=== PATIENT | male | born 1945 | race Caucasian/White ===

== ENCOUNTER 2017-06-25 08:27 | Inpatient (IN) ==
[2017-06-25] MEDS ORDERED: FUROSEMIDE 100 MG/10 ML VIAL IV STA (09:26)
[2017-06-25] MEDS ORDERED: FUROSEMIDE 40 MG/4 ML VIAL ONE (09:32)
[2017-06-25] MEDS ORDERED: FUROSEMIDE 20 MG/2 ML VIAL ONE (09:32)
[2017-06-25 09:57] LABS: Basophils % 0.3 % (0.0-0.8); Eosinophils # 0.1 10*3/uL (0.0-0.87); Eosinophils % 0.5 % (0.00-10.9); Hematocrit 39.6 VOL% (42.0-52.0); Hemoglobin 12.7 GM/DL (14.0-18.0); Immature Granulocytes % 0.5 %; Immature Granulocytes Absolute 0.06 #; Lymphocytes # 1.7 10*3/uL (1.4-4.0); Lymphocytes % 12.5 % (21.2-54.2); Mean Corpuscular HGB Conc 32.1 GM/DL (32-36); Mean Corpuscular Hemoglobin 31 PG (27-34); Mean Corpuscular Volume 95.2 FL (87-102); Mean Platelet Volume 13.5 FL (9.6-12.0); Monocytes # 1.1 10*3/uL (0.11-0.8); Neutrophils # 10.3 10*3/uL (1.4-7.4); Neutrophils % 78.2 % (38.7-73.9); Platelet Count 134 T/CUMM (130-400); Red Blood Count 4.16 MC/CUMM (3.8-5.5); Red Cell Distribution Width 15.1 % (9.3-17.3); White Blood Count 13.2 T/CUMM (4-12)
[2017-06-25 10:29] LABS: Albumin 2.8 G/DL (3.4-5.0); Bilirubin,Total 2.2 MG/DL (0.2-1.0); Calcium 8.5 MG/DL (8.5-10.1); Osmolality,Calculated 279.8 MOS/KG (273-304); Potassium 4.2 MMOL/L (3.5-5.1); Total Protein 6.4 G/DL (6.4-8.3)
[2017-06-25] MEDS ORDERED: ONDANSETRON 4 MG/2 ML VIAL IV PRN (12:03)
[2017-06-25] MEDS ORDERED: ACETAMINOPHEN 325 MG TABLET PO PRN (12:03)
[2017-06-25] MEDS ORDERED: metOLazone 5 MG TABLET PO SCH (15:30)
[2017-06-25] MEDS: cefTRIAXone 1,000 MG in SYRINGE 1 EACH IV SCH (16:20)
[2017-06-25] MEDS: FUROSEMIDE 100 MG/10 ML VIAL IV SCH (16:21)
[2017-06-25] MEDS: METOPROLOL SUCCINATE XL 25 MG TABLET PO SCH (16:22)
[2017-06-25] MEDS: AMIODARONE 200 MG TABLET PO SCH ×2 (16:23→21:34)
[2017-06-25] MEDS: ASPIRIN CHEW 81 MG TABLET PO SCH (16:23)
[2017-06-25] MEDS: amLODIPine 5 MG TABLET PO SCH (16:23)
[2017-06-25] MEDS: POTASSIUM CHLORIDE 20 MEQ TABLET PO SCH (16:23)
[2017-06-25 16:58] LABS: Apearance,Urine CLEAR (Clear); Bilirubin,Urine Negative (Negative); Blood, Urine Small mg/dL (Negative); Glucose,Urine (UA) Negative (Negative); Hyaline Casts,Urine 10 /LPF (0-3); Ketones,Urine Negative (Negative); Mucus,Urine Occasional /LPF (Occasional); Nitrite,Urine Negative (Negative); Protein,Urine Negative; Urine Color Yellow (Yellow); Urine Specific Gravity 1.006 (1.001-1.035); Urine Urobilinogen < 2.0 EU/DL (0.2-1.0); WBC,Urine 1 /HPF (0-6)
[2017-06-25 18:14] LABS: Barbiturates Screen,Urine Negative (Negative); Benzodiazepines Screen,Urine Negative (Negative); Cannabinoid Screen,Urine Negative (Negative); Opiate Screen,Urine Negative (Negative); Phencyclidine Screen,Urine Negative (Negative)
[2017-06-25] MEDS: ENOXAPARIN 30 MG/0.3 ML SYRINGE SUBCUT SCH (21:34)
[2017-06-25] MEDS: ATORVASTATIN 20 MG TABLET PO SCH (21:34)
[2017-06-26 05:03] LABS: Basophils % 0.4 % (0.0-0.8); Eosinophils # 0.1 10*3/uL (0.0-0.87); Eosinophils % 0.7 % (0.00-10.9); Hematocrit 34.3 VOL% (42.0-52.0); Hemoglobin 11.3 GM/DL (14.0-18.0); Immature Granulocytes % 0.6 %; Immature Granulocytes Absolute 0.06 #; Lymphocytes # 1.4 10*3/uL (1.4-4.0); Lymphocytes % 12.9 % (21.2-54.2); Mean Corpuscular HGB Conc 32.9 GM/DL (32-36); Mean Corpuscular Hemoglobin 31 PG (27-34); Mean Corpuscular Volume 93.2 FL (87-102); Mean Platelet Volume 13.7 FL (9.6-12.0); Monocytes # 0.8 10*3/uL (0.11-0.8); Monocytes % 7.7 % (1.7-12.7); Neutrophils # 8.5 10*3/uL (1.4-7.4); Neutrophils % 77.7 % (38.7-73.9); Platelet Count 127 T/CUMM (130-400); Red Blood Count 3.68 MC/CUMM (3.8-5.5); Red Cell Distribution Width 15.2 % (9.3-17.3); White Blood Count 10.9 T/CUMM (4-12)
[2017-06-26 05:41] LABS: Albumin 2.6 G/DL (3.4-5.0); Bilirubin,Total 2.3 MG/DL (0.2-1.0); Osmolality,Calculated 281.7 MOS/KG (273-304); Potassium 4.1 MMOL/L (3.5-5.1); Risk Ratio 4.9; Thyroid Stimulating Hormone 1.93 uIU/ml (0.358-3.74); Total Protein 6.1 G/DL (6.4-8.3); VLDL CHOLESTEROL 17.6 MG/DL
[2017-06-26] MEDS: ASPIRIN CHEW 81 MG TABLET PO SCH (08:45)
[2017-06-26] MEDS: amLODIPine 5 MG TABLET PO SCH (08:45)
[2017-06-26] MEDS: POTASSIUM CHLORIDE 20 MEQ TABLET PO SCH (08:45)
[2017-06-26] MEDS: AMIODARONE 200 MG TABLET PO SCH ×2 (08:45→21:24)
[2017-06-26] MEDS: PANTOPRAZOLE 40 MG TABLET PO SCH (08:45)
[2017-06-26] MEDS: METOPROLOL SUCCINATE XL 25 MG TABLET PO SCH (08:45)
[2017-06-26] MEDS ORDERED: FUROSEMIDE 100 MG/10 ML VIAL IV SCH (08:51)
[2017-06-26] MEDS ORDERED: FUROSEMIDE 40 MG/4 ML VIAL IV SCH (09:00)
[2017-06-26] MEDS: FUROSEMIDE 100 MG/10 ML VIAL IV SCH ×3 (09:06→17:15)
[2017-06-26] MEDS: metOLazone 5 MG TABLET PO SCH (09:20)
[2017-06-26 10:39] LABS: Hepatitis A Ab IgM Quant 0.09 Index; Hepatitis A Ab IgM Result Negative (Negative); Hepatitis B Core IgM Quant 0.17 Index; Hepatitis B Core IgM Result Negative (Negative); Hepatitis B Surface Ag Quant 0.15 Index; Hepatitis B Surface Ag Result Negative (Negative); Hepatitis C Virus Ab Quant 0.09 Index; Hepatitis C Virus Ab Result Negative (Negative)
[2017-06-26] MEDS: cefTRIAXone 1,000 MG in SYRINGE 1 EACH IV SCH (15:20)
[2017-06-26] MEDS: ENOXAPARIN 30 MG/0.3 ML SYRINGE SUBCUT SCH (21:24)
[2017-06-26] MEDS: ATORVASTATIN 20 MG TABLET PO SCH (21:24)
[2017-06-27 03:47] LABS: Basophils # 0.1 10*3/uL (0.0-0.2); Basophils % 0.5 % (0.0-0.8); Eosinophils # 0.1 10*3/uL (0.0-0.87); Eosinophils % 1.1 % (0.00-10.9); Hematocrit 36.1 VOL% (42.0-52.0); Immature Granulocytes % 0.3 %; Immature Granulocytes Absolute 0.03 #; Lymphocytes # 1.5 10*3/uL (1.4-4.0); Lymphocytes % 14.1 % (21.2-54.2); Mean Corpuscular HGB Conc 33.2 GM/DL (32-36); Mean Corpuscular Hemoglobin 31 PG (27-34); Mean Corpuscular Volume 92.6 FL (87-102); Monocytes # 0.8 10*3/uL (0.11-0.8); Monocytes % 7.6 % (1.7-12.7); Neutrophils # 8.2 10*3/uL (1.4-7.4); Neutrophils % 76.4 % (38.7-73.9); Platelet Count 132 T/CUMM (130-400); Red Cell Distribution Width 15.3 % (9.3-17.3); White Blood Count 10.8 T/CUMM (4-12)
[2017-06-27 04:08] LABS: Albumin 2.6 G/DL (3.4-5.0); Bilirubin,Total 1.9 MG/DL (0.2-1.0); Calcium 8.2 MG/DL (8.5-10.1); Osmolality,Calculated 279.7 MOS/KG (273-304); Potassium 3.6 MMOL/L (3.5-5.1); Total Protein 6.3 G/DL (6.4-8.3)
[2017-06-27] MEDS: metOLazone 5 MG TABLET PO SCH (09:05)
[2017-06-27] MEDS: ASPIRIN CHEW 81 MG TABLET PO SCH (09:06)
[2017-06-27] MEDS: amLODIPine 5 MG TABLET PO SCH (09:06)
[2017-06-27] MEDS: METOPROLOL SUCCINATE XL 25 MG TABLET PO SCH ×3 (09:06→21:01)
[2017-06-27] MEDS: POTASSIUM CHLORIDE 20 MEQ TABLET PO SCH (09:06)
[2017-06-27] MEDS: AMIODARONE 200 MG TABLET PO SCH (09:06)
[2017-06-27] MEDS: FUROSEMIDE 100 MG/10 ML VIAL IV SCH ×2 (09:06→15:03)
[2017-06-27] MEDS: PANTOPRAZOLE 40 MG TABLET PO SCH (09:06)
[2017-06-27] MEDS: cefTRIAXone 1,000 MG in SYRINGE 1 EACH IV SCH (14:59)
[2017-06-27] MEDS: ENOXAPARIN 30 MG/0.3 ML SYRINGE SUBCUT SCH (21:00)
[2017-06-27] MEDS: MELATONIN 3 MG TABLET PO SCH (21:00)
[2017-06-27] MEDS: ATORVASTATIN 20 MG TABLET PO SCH (21:01)
[2017-06-27] MEDS: SERTRALINE 100 MG TABLET PO SCH (21:01)
[2017-06-27] MEDS: ZALEPLON 5 MG CAPSULE PO PRN ×2 (21:04→23:20)
[2017-06-28 04:41] LABS: Basophils # 0.1 10*3/uL (0.0-0.2); Basophils % 0.9 % (0.0-0.8); Eosinophils # 0.2 10*3/uL (0.0-0.87); Eosinophils % 1.9 % (0.00-10.9); Hematocrit 39.2 VOL% (42.0-52.0); Hemoglobin 12.7 GM/DL (14.0-18.0); Immature Granulocytes % 0.5 %; Immature Granulocytes Absolute 0.05 #; Lymphocytes # 1.7 10*3/uL (1.4-4.0); Lymphocytes % 16.9 % (21.2-54.2); Mean Corpuscular HGB Conc 32.4 GM/DL (32-36); Mean Corpuscular Hemoglobin 30 PG (27-34); Mean Corpuscular Volume 93.6 FL (87-102); Mean Platelet Volume 13.5 FL (9.6-12.0); Monocytes # 0.8 10*3/uL (0.11-0.8); Monocytes % 7.8 % (1.7-12.7); Neutrophils # 7.3 10*3/uL (1.4-7.4); Platelet Count 152 T/CUMM (130-400); Red Blood Count 4.19 MC/CUMM (3.8-5.5); Red Cell Distribution Width 14.8 % (9.3-17.3); White Blood Count 10.1 T/CUMM (4-12)
[2017-06-28 04:57] LABS: Albumin 2.7 G/DL (3.4-5.0); Bilirubin,Total 1.7 MG/DL (0.2-1.0); Calcium 8.9 MG/DL (8.5-10.1); Osmolality,Calculated 276.9 MOS/KG (273-304); Potassium 3.5 MMOL/L (3.5-5.1); Total Protein 6.5 G/DL (6.4-8.3)
[2017-06-28] MEDS: metOLazone 5 MG TABLET PO SCH (08:54)
[2017-06-28] MEDS: POTASSIUM CHLORIDE 20 MEQ TABLET PO SCH (08:55)
[2017-06-28] MEDS: ASPIRIN CHEW 81 MG TABLET PO SCH (08:55)
[2017-06-28] MEDS: AMIODARONE 200 MG TABLET PO SCH (08:55)
[2017-06-28] MEDS: PANTOPRAZOLE 40 MG TABLET PO SCH (08:55)
[2017-06-28] MEDS: FUROSEMIDE 100 MG/10 ML VIAL IV SCH ×2 (08:55→15:46)
[2017-06-28] MEDS: METOPROLOL SUCCINATE XL 25 MG TABLET PO SCH ×2 (15:46→21:07)
[2017-06-28] MEDS: amLODIPine 5 MG TABLET PO SCH (15:46)
[2017-06-28] MEDS: SERTRALINE 100 MG TABLET PO SCH (21:06)
[2017-06-28] MEDS: ATORVASTATIN 20 MG TABLET PO SCH (21:07)
[2017-06-28] MEDS: ENOXAPARIN 30 MG/0.3 ML SYRINGE SUBCUT SCH (21:07)
[2017-06-28] MEDS: MELATONIN 3 MG TABLET PO SCH (21:07)
[2017-06-29] MEDS: METOPROLOL SUCCINATE XL 25 MG TABLET PO SCH ×2 (09:13→21:42)
[2017-06-29] MEDS: POTASSIUM CHLORIDE 20 MEQ TABLET PO SCH (09:14)
[2017-06-29] MEDS: ASPIRIN CHEW 81 MG TABLET PO SCH (09:14)
[2017-06-29] MEDS: metOLazone 5 MG TABLET PO SCH (09:14)
[2017-06-29] MEDS: FUROSEMIDE 100 MG/10 ML VIAL IV SCH (09:14)
[2017-06-29] MEDS: PANTOPRAZOLE 40 MG TABLET PO SCH (09:14)
[2017-06-29] MEDS: amLODIPine 5 MG TABLET PO SCH (09:14)
[2017-06-29] MEDS: AMIODARONE 200 MG TABLET PO SCH (09:14)
[2017-06-29] MEDS ORDERED: SKIN HEALING OINT (AQUAPHOR) 50 GM TUBE TOP PRN (11:56)
[2017-06-29 13:44] LABS: Calcium 9.3 MG/DL (8.5-10.1); Osmolality,Calculated 272.4 MOS/KG (273-304); Potassium 3.4 MMOL/L (3.5-5.1)
[2017-06-29] MEDS: BACITRACIN OINT 0.9 GM PACK TOP SCH (14:25)
[2017-06-29] MEDS ORDERED: ZOLPIDEM 5 MG TABLET PO PRN (16:09)
[2017-06-29] MEDS: MELATONIN 3 MG TABLET PO SCH (21:42)
[2017-06-29] MEDS: SERTRALINE 100 MG TABLET PO SCH (21:43)
[2017-06-29] MEDS: ATORVASTATIN 20 MG TABLET PO SCH (21:43)
[2017-06-29] MEDS: ENOXAPARIN 30 MG/0.3 ML SYRINGE SUBCUT SCH (21:43)
[2017-06-30 06:33] LABS: Basophils # 0.2 10*3/uL (0.0-0.2); Basophils % 1.7 % (0.0-0.8); Eosinophils # 0.4 10*3/uL (0.0-0.87); Eosinophils % 4.4 % (0.00-10.9); Hematocrit 43.1 VOL% (42.0-52.0); Hemoglobin 14.6 GM/DL (14.0-18.0); Immature Granulocytes % 0.3 %; Immature Granulocytes Absolute 0.03 #; Lymphocytes # 1.4 10*3/uL (1.4-4.0); Lymphocytes % 15.7 % (21.2-54.2); Mean Corpuscular HGB Conc 33.9 GM/DL (32-36); Mean Corpuscular Hemoglobin 31 PG (27-34); Mean Platelet Volume 13.1 FL (9.6-12.0); Monocytes # 0.9 10*3/uL (0.11-0.8); Neutrophils % 67.9 % (38.7-73.9); Platelet Count 159 T/CUMM (130-400); Red Blood Count 4.79 MC/CUMM (3.8-5.5); Red Cell Distribution Width 14.5 % (9.3-17.3); White Blood Count 8.9 T/CUMM (4-12)
[2017-06-30 07:06] LABS: Calcium 8.9 MG/DL (8.5-10.1); Osmolality,Calculated 272.4 MOS/KG (273-304)
[2017-06-30 07:11] LABS: Bilirubin,Total 1.9 MG/DL (0.2-1.0); Calcium 8.9 MG/DL (8.5-10.1); Osmolality,Calculated 274.2 MOS/KG (273-304); Potassium 2.9 MMOL/L (3.5-5.1); Total Protein 7.3 G/DL (6.4-8.3)
[2017-06-30] MEDS: ASPIRIN CHEW 81 MG TABLET PO SCH (10:00)
[2017-06-30] MEDS: POTASSIUM CHLORIDE 20 MEQ TABLET PO SCH (10:00)
[2017-06-30] MEDS: PANTOPRAZOLE 40 MG TABLET PO SCH (10:00)
[2017-06-30] MEDS: amLODIPine 5 MG TABLET PO SCH (10:00)
[2017-06-30] MEDS: AMIODARONE 200 MG TABLET PO SCH (10:00)
[2017-06-30] MEDS: METOPROLOL SUCCINATE XL 25 MG TABLET PO SCH ×2 (10:00→20:46)
[2017-06-30] MEDS: BACITRACIN OINT 0.9 GM PACK TOP SCH (10:05)
[2017-06-30] MEDS ORDERED: POTASSIUM CHLORIDE 20 MEQ TABLET PO ONE ×2 (11:17→13:38)
[2017-06-30 12:52] LABS: Calcium 8.8 MG/DL (8.5-10.1); Osmolality,Calculated 272.2 MOS/KG (273-304); Potassium 2.8 MMOL/L (3.5-5.1)
[2017-06-30] MEDS: SODIUM CHLORIDE 1 GM TABLET PO SCH ×2 (12:57→20:46)
[2017-06-30] MEDS: ENOXAPARIN 30 MG/0.3 ML SYRINGE SUBCUT SCH (20:45)
[2017-06-30] MEDS: SERTRALINE 100 MG TABLET PO SCH (20:46)
[2017-06-30] MEDS: MELATONIN 3 MG TABLET PO SCH (20:46)
[2017-06-30] MEDS: ATORVASTATIN 20 MG TABLET PO SCH (20:46)
[2017-06-30] MEDS: ZALEPLON 5 MG CAPSULE PO PRN (22:03)
[2017-07-01 06:28] LABS: Basophils # 0.2 10*3/uL (0.0-0.2); Basophils % 2.4 % (0.0-0.8); Eosinophils # 0.5 10*3/uL (0.0-0.87); Eosinophils % 5.9 % (0.00-10.9); Hematocrit 43.5 VOL% (42.0-52.0); Hemoglobin 14.3 GM/DL (14.0-18.0); Immature Granulocytes % 0.4 %; Immature Granulocytes Absolute 0.03 #; Lymphocytes # 1.5 10*3/uL (1.4-4.0); Lymphocytes % 19.7 % (21.2-54.2); Mean Corpuscular HGB Conc 32.9 GM/DL (32-36); Mean Corpuscular Hemoglobin 31 PG (27-34); Mean Corpuscular Volume 93.1 FL (87-102); Monocytes # 0.9 10*3/uL (0.11-0.8); Monocytes % 11.5 % (1.7-12.7); Neutrophils # 4.6 10*3/uL (1.4-7.4); Neutrophils % 60.1 % (38.7-73.9); Platelet Count 169 T/CUMM (130-400); Red Blood Count 4.67 MC/CUMM (3.8-5.5); Red Cell Distribution Width 14.7 % (9.3-17.3); White Blood Count 7.6 T/CUMM (4-12)
[2017-07-01 06:50] LABS: Albumin 2.9 G/DL (3.4-5.0); Calcium 8.8 MG/DL (8.5-10.1); Osmolality,Calculated 276.7 MOS/KG (273-304); Potassium 3.2 MMOL/L (3.5-5.1)
[2017-07-01] MEDS ORDERED: FUROSEMIDE 80 MG TABLET PO SCH (09:00)
[2017-07-01] MEDS ORDERED: POTASSIUM CHLORIDE 20 MEQ TABLET PO SCH (09:00)
[2017-07-01] MEDS: SODIUM CHLORIDE 1 GM TABLET PO SCH (09:18)
[2017-07-01] MEDS: METOPROLOL SUCCINATE XL 25 MG TABLET PO SCH (09:18)
[2017-07-01] MEDS: PANTOPRAZOLE 40 MG TABLET PO SCH (09:19)
[2017-07-01] MEDS: ASPIRIN CHEW 81 MG TABLET PO SCH (09:19)
[2017-07-01] MEDS: AMIODARONE 200 MG TABLET PO SCH (09:19)
[2017-07-01] MEDS: amLODIPine 5 MG TABLET PO SCH (09:19)
[2017-07-01 12:14] VITALS: BP 99/63
[2017-07-04] MEDS ORDERED: ERGOCALCIFEROL 50,000 UNIT CAPSULE PO SCH (09:00)
== END 2017-07-01 12:25 | disposition home health service (06) | DRG 291 ==
LOC: N.ED 08:27 → SUATTDRO 11:04 → N.EDINP 11:04 → N.CC 11:49 → N.TELEN 06-27 13:39
PROVIDERS: ADMIT Internal Medicine; ATTEND Internal Medicine

== ENCOUNTER 2017-08-19 05:30 | Inpatient (IN) ==
[2017-08-18 12:54] LABS: Basophils # 0.1 10*3/uL (0.0-0.2); Basophils % 0.9 % (0.0-0.8); Eosinophils # 0.9 10*3/uL (0.0-0.87); Eosinophils % 8.8 % (0.00-10.9); Hematocrit 47.1 VOL% (42.0-52.0); Hemoglobin 15.3 GM/DL (14.0-18.0); Immature Granulocytes % 0.3 %; Immature Granulocytes Absolute 0.03 #; Lymphocytes # 2.1 10*3/uL (1.4-4.0); Lymphocytes % 19.7 % (21.2-54.2); Mean Corpuscular HGB Conc 32.5 GM/DL (32-36); Mean Corpuscular Hemoglobin 30 PG (27-34); Mean Corpuscular Volume 92.9 FL (87-102); Monocytes # 0.7 10*3/uL (0.11-0.8); Monocytes % 6.3 % (1.7-12.7); Neutrophils # 6.7 10*3/uL (1.4-7.4); Platelet Count 167 T/CUMM (130-400); Red Blood Count 5.07 MC/CUMM (3.8-5.5); Red Cell Distribution Width 15.7 % (9.3-17.3); White Blood Count 10.4 T/CUMM (4-12)
[2017-08-18 13:02] LABS: PT Patient Result 10.3 SECS; Partial Thromboplastin Time 27.5 SECS (0-40)
[2017-08-18 13:27] LABS: Calcium 8.9 MG/DL (8.5-10.1); Osmolality,Calculated 278.8 MOS/KG (273-304); Potassium 4.1 MMOL/L (3.5-5.1)
[2017-08-18 13:43] LABS: Apearance,Urine CLEAR (Clear); Bilirubin,Urine Negative (Negative); Blood, Urine Negative (Negative); Glucose,Urine (UA) Negative (Negative); Hyaline Casts,Urine 4 /LPF (0-3); Ketones,Urine Negative (Negative); Nitrite,Urine Negative (Negative); Protein,Urine Negative; Squamous Epithelial Cell,Urine Occasional /HPF (0-10); Urine Color Straw (Yellow); Urine Specific Gravity 1.006 (1.001-1.035); Urine Urobilinogen < 2.0 EU/DL (0.2-1.0)
[~2017-08-19 05:30] MED LIST: HEPARIN/NACL 0.9% 2 UNITS/ML 500 ML IV ONE; MIDAZOLAM 10 MG/2 ML VIAL ONE; SODIUM CHLORIDE 0.9% 1,000 ML IV PRN; SUFentanil 250 MCG/5 ML AMP ONE; TRANEXAMIC ACID 1,000 MG/10 ML VIAL ONE
[2017-08-19] MEDS ORDERED: TISSUE ADHESIVE 1 EACH APPLICATOR TOP ONE (05:35)
[2017-08-19] MEDS ORDERED: VANCOMYCIN 1,000 MG VIAL ONE (05:35)
[2017-08-19] MEDS ORDERED: PAPAVERINE 60 MG/2 ML VIAL ONE (05:35)
[2017-08-19] MEDS ORDERED: CEFUROXIME 1,500 MG VIAL ONE (06:06)
[2017-08-19] MEDS ORDERED: LIDOCAINE 1% 50 ML VIAL ONE (06:08)
[2017-08-19] MEDS ORDERED: DIAZEPAM 5 MG TABLET ONE (06:10)
[2017-08-19] MEDS ORDERED: FAMOTIDINE 20 MG TABLET ONE (06:11)
[2017-08-19] MEDS ORDERED: FAMOTIDINE 20 MG TABLET PO ONE (06:14)
[2017-08-19] MEDS: LACTATED RINGERS 1,000 ML IV SCH (06:20)
[2017-08-19] MEDS ORDERED: DIAZEPAM 5 MG TABLET PO ONE (06:30)
[2017-08-19] MEDS ORDERED: CEFUROXIME INJ 1,500 MG in SYRINGE 1 EACH IV ONE (06:30)
[2017-08-19 07:56] LABS: ABG Base Excess -2.3 MMOL/L (-2.5-2.5); ABG HCO3 22.5 MMOL/L (20-26); ABG Oxygen Saturation 99.6 % (95-100); ABG PCO2 37.2 MM HG (35-48); ABG PH 7.385 (7.35-7.45); ABG TCO2 19.4 MMOL/L (23-27); Glucose Heart Surgery 117 MG/DL (74-106); Hemoglobin Heart Surgery 13.4 G/DL (14.0-18.0); Ionized Calcium Arterial 1.17 MMOL/L (1.21-1.46); PCO2 Patient Temp Arterial 37.2 MMHG; PH Patient Temp Arterial 7.385; Patient Temperature 37 CELCIUS; Potassium Heart/CVR 4.2 MMOL/L (3.5-5.1); Sodium Heart/CVR 138 MMOL/L (135-145)
[2017-08-19 08:45] LABS: Apearance,Urine CLEAR (Clear); Bacteria,Urine Occasional /HPF (Few); Bilirubin,Urine Negative (Negative); Blood, Urine Small mg/dL (Negative); Glucose,Urine (UA) Negative (Negative); Hyaline Casts,Urine 6 /LPF (0-3); Ketones,Urine Negative (Negative); Mucus,Urine Occasional /LPF (Occasional); Nitrite,Urine Negative (Negative); Protein,Urine Negative; RBC,Urine 4 /HPF (0-4); Sperm,Urine Occasional /HPF (Negative); Squamous Epithelial Cell,Urine Occasional /HPF (0-10); Urine Color Yellow (Yellow); Urine Specific Gravity 1.014 (1.001-1.035); Urine Urobilinogen < 2.0 EU/DL (0.2-1.0); WBC,Urine 1 /HPF (0-6)
[2017-08-19 09:33] LABS: Hematocrit Heart Surgery 29.5 PERCENT (42-52); Hemoglobin Heart Surgery 9.5 G/DL (14.0-18.0); PCO2 Patient Temp Venous 36.5 MM HG; PH Patient Temp Venous 7.416; PO2 Patient Temp Venous 38.6 MM HG; Potassium Heart/CVR 5.2 MMOL/L (3.5-5.1); VBG Base Excess -0.8 MEQ/L (0-4); VBG HCO3 23.5 MEQ/L (24-28); VBG Oxygen Saturation 78.5 %; VBG PCO2 40.2 MMHG (41-51); VBG PH 7.387; VBG PO2 44.3 MMHG (17-40)
[2017-08-19 10:05] LABS: Hemoglobin Heart Surgery 10.3 G/DL (14.0-18.0); PCO2 Patient Temp Venous 38.4 MM HG; PH Patient Temp Venous 7.42; PO2 Patient Temp Venous 47.2 MM HG; Potassium Heart/CVR 4.6 MMOL/L (3.5-5.1); VBG HCO3 24.3 MEQ/L (24-28); VBG Oxygen Saturation 79.3 %; VBG PCO2 38.4 MMHG (41-51); VBG PH 7.42; VBG PO2 47.2 MMHG (17-40)
[2017-08-19] MEDS ORDERED: THROMBIN TOPICAL (RECOMBINANT) 5,000 UNIT VIAL TOP ONE (10:24)
[2017-08-19] MEDS ORDERED: ALBUMIN 5% 12.5 GM/250 ML VIAL IV ONE ×2 (11:02→12:09)
[2017-08-19] MEDS ORDERED: CALCIUM CHLORIDE 1,000 MG/10 ML SYRINGE IV ONE (11:02)
[2017-08-19 11:03] LABS: ABG Base Excess -1.7 MMOL/L (-2.5-2.5); ABG HCO3 23.7 MMOL/L (20-26); ABG Oxygen Saturation 99.2 % (95-100); ABG PCO2 42.8 MM HG (35-48); ABG PH 7.361 (7.35-7.45); ABG PO2 371.5 MM HG (80-95); Glucose Heart Surgery 163 MG/DL (74-106); Hemoglobin Heart Surgery 11.6 G/DL (14.0-18.0); Ionized Calcium Arterial 1.17 MMOL/L (1.21-1.46); PCO2 Patient Temp Arterial 42.8 MMHG; PH Patient Temp Arterial 7.361; PO2 Patient Temp Arterial 371.5 MM HG; Patient Temperature 37 CELCIUS; Potassium Heart/CVR 3.8 MMOL/L (3.5-5.1); Sodium Heart/CVR 133 MMOL/L (135-145)
[2017-08-19] MEDS ORDERED: ALBUMIN 25% 25 GM/100 ML VIAL IV ONE (11:06)
[2017-08-19] MEDS ORDERED: DEXTROSE 5% KCL 20 MEQ 20 MEQ/1,000 ML BAG IV ONE (11:06)
[2017-08-19] MEDS ORDERED: MAGNESIUM SULFATE 1 GM/2 ML VIAL ONE (11:06)
[2017-08-19] MEDS ORDERED: PROTAMINE SULFATE 250 MG/25 ML VIAL IV ONE ×2 (11:06→12:05)
[2017-08-19] MEDS ORDERED: HEPARIN 10,000 UNIT/10 ML VIAL ONE (11:06)
[2017-08-19] MEDS ORDERED: methylPREDNISolone SOD SUC 1,000 MG/8 ML VIAL ONE (11:06)
[2017-08-19] MEDS ORDERED: SODIUM BICARBONATE 50 MEQ/50 ML SYRINGE IV ONE ×2 (11:06→19:44)
[2017-08-19] MEDS ORDERED: FUROSEMIDE 20 MG/2 ML VIAL ONE (11:07)
[2017-08-19] MEDS ORDERED: MANNITOL 12.5 GM/50 ML VIAL IV ONE (11:07)
[2017-08-19] MEDS ORDERED: CALCIUM CHLORIDE 1,000 MG/10 ML SYRINGE IV PRN (11:52)
[2017-08-19] MEDS ORDERED: ACETAMINOPHEN 650 MG SUPP RECTAL PRN (11:52)
[2017-08-19] MEDS ORDERED: DEXTROSE 50% 25 GM/50 ML VIAL IV PRN ×2 (11:52)
[2017-08-19] MEDS ORDERED: ONDANSETRON 4 MG/2 ML VIAL IV PRN (11:52)
[2017-08-19] MEDS ORDERED: MAGNESIUM SULF RIDER 4 GM in PREMIX 1 EACH IV PRN (11:52)
[2017-08-19] MEDS ORDERED: MIDAZOLAM 2 MG/2 ML VIAL IV PRN (11:52)
[2017-08-19] MEDS ORDERED: CHLORHEXIDINE 4% SOLN 118 ML BOTTLE TOP PRN (11:52)
[2017-08-19] MEDS ORDERED: POTASSIUM CHLORIDE RIDER 10 MEQ in PREMIX 1 EACH IV PRN (11:52)
[2017-08-19] MEDS ORDERED: PHENYLEPHRINE DRIP 40 MG/250 ML PREMIX IV ONE (11:57)
[2017-08-19] MEDS ORDERED: SODIUM CHLORIDE 0.45% 1,000 ML IV SCH (12:00)
[2017-08-19] MEDS: SODIUM CHLORIDE 0.9% 250 ML IV PRN ×4 (12:00→16:30)
[2017-08-19] MEDS: ALBUMIN 5% 12.5 GM in PREMIX 1 EACH IV PRN ×4 (12:00→18:53)
[2017-08-19] MEDS ORDERED: SEVOFLURANE 1 UNIT/15 MINUTE INH ONE (12:04)
[2017-08-19] MEDS ORDERED: ETOMIDATE 40 MG/20 ML VIAL IV ONE (12:04)
[2017-08-19] MEDS ORDERED: VECURONIUM 10 MG VIAL IV ONE (12:04)
[2017-08-19] MEDS ORDERED: CALCIUM CHLORIDE 1,000 MG/10 ML VIAL IV ONE (12:05)
[2017-08-19] MEDS ORDERED: SODIUM CHLORIDE 0.9% 1,000 ML IV ONE (12:06)
[2017-08-19] MEDS ORDERED: ePHEDrine 50 MG/ML AMP ONE (12:06)
[2017-08-19] MEDS ORDERED: LACTATED RINGERS 1,000 ML IV ONE (12:06)
[2017-08-19] MEDS ORDERED: PHENYLEPHRINE 10 MG/1 ML VIAL IV ONE (12:06)
[2017-08-19 12:26] LABS: ABG Base Excess -3.6 MMOL/L (-2.5-2.5); ABG HCO3 21.4 MMOL/L (20-26); ABG Oxygen Saturation 98.9 % (95-100); ABG PCO2 45.7 MM HG (35-48); ABG PH 7.304 (7.35-7.45); ABG TCO2 21.1 MMOL/L (23-27); Glucose Heart Surgery 129 MG/DL (74-106); Hematocrit Heart Surgery 28.4 PERCENT (42-52); Hemoglobin Heart Surgery 9.2 G/DL (14.0-18.0); Potassium Heart/CVR 4.2 MMOL/L (3.5-5.1)
[2017-08-19 12:27] LABS: Basophils # 0.1 10*3/uL (0.0-0.2); Basophils % 0.5 % (0.0-0.8); Eosinophils # 0.2 10*3/uL (0.0-0.87); Eosinophils % 1.6 % (0.00-10.9); Hemoglobin 9.1 GM/DL (14.0-18.0); Immature Granulocytes % 0.8 %; Immature Granulocytes Absolute 0.12 #; Lymphocytes # 1.3 10*3/uL (1.4-4.0); Lymphocytes % 8.9 % (21.2-54.2); Mean Corpuscular HGB Conc 32.5 GM/DL (32-36); Mean Corpuscular Hemoglobin 31 PG (27-34); Mean Corpuscular Volume 94.3 FL (87-102); Mean Platelet Volume 12.7 FL (9.6-12.0); Monocytes # 0.8 10*3/uL (0.11-0.8); Neutrophils # 12.5 10*3/uL (1.4-7.4); Neutrophils % 83.2 % (38.7-73.9); Platelet Count 111 T/CUMM (130-400); Red Blood Count 2.97 MC/CUMM (3.8-5.5); Red Cell Distribution Width 15.7 % (9.3-17.3)
[2017-08-19 12:36] LABS: INR 1.2; PT Patient Result 12.6 SECS; Partial Thromboplastin Time 34.4 SECS (0-40)
[2017-08-19] MEDS: PHENYLEPHRINE DRIP 40 MG/250 ML PREMIX IV PRN (12:36)
[2017-08-19] MEDS: SODIUM CHLORIDE 0.45% 1,000 ML IV SCH (12:43)
[2017-08-19 12:48] LABS: Lactic Acid 2.2 MMOL/L (0.4-2.0)
[2017-08-19 12:56] LABS: Blood Urea Nitrogen 23 MG/DL (7-18); Calcium 7.4 MG/DL (8.5-10.1); Glucose 121 MG/DL (74-106); Osmolality,Calculated 285.3 MOS/KG (273-304); Potassium 4.4 MMOL/L (3.5-5.1); Sodium 141 MMOL/L (136-145)
[2017-08-19] MEDS: MAGNESIUM SULF RIDER 2 GM in PREMIX 1 EACH IV PRN (13:27)
[2017-08-19 14:09] LABS: VBG Base Excess -1.1 MEQ/L (0-4); VBG PCO2 55.5 MMHG (41-51); VBG PH 7.284; VBG PO2 38.6 MMHG (17-40)
[2017-08-19] MEDS: INSULIN REGULAR DRIP 100 ML IV SCH (16:19)
[2017-08-19] MEDS ORDERED: ASPIRIN 300 MG SUPP RECTAL ONE (16:23)
[2017-08-19] MEDS: INSULIN REGULAR 100 UNIT/ML IV PRN ×2 (18:27→20:26)
[2017-08-19 19:12] LABS: ABG Base Excess -3.5 MMOL/L (-2.5-2.5); ABG HCO3 21.5 MMOL/L (20-26); ABG Oxygen Saturation 98.1 % (95-100); ABG PCO2 45.9 MM HG (35-48); ABG PH 7.304 (7.35-7.45); ABG TCO2 21.3 MMOL/L (23-27)
[2017-08-19 19:36] LABS: Lactic Acid 2.5 MMOL/L (0.4-2.0)
[2017-08-19] MEDS ORDERED: LACTATED RINGERS 500 ML IV ONE (19:45)
[2017-08-19] MEDS: METOPROLOL SUCCINATE XL 25 MG TABLET PO SCH (20:44)
[2017-08-19] MEDS: SERTRALINE 100 MG TABLET PO SCH (20:50)
[2017-08-19] MEDS: CEFUROXIME INJ 1,500 MG in SYRINGE 1 EACH IV SCH (20:51)
[2017-08-19] MEDS: CHLORHEXIDINE 0.12% ORAL RINSE 60 ML BOTTLE SWISH/SPIT SCH (20:51)
[2017-08-19] MEDS: MORPHINE 4 MG/1 ML VIAL IV PRN (23:26)
[2017-08-20] MEDS: MORPHINE 10 MG/1 ML VIAL IV PRN ×2 (00:04→10:09)
[2017-08-20] MEDS: PHENYLEPHRINE DRIP 40 MG/250 ML PREMIX IV PRN (00:13)
[2017-08-20] MEDS: SODIUM CHLORIDE 0.45% 1,000 ML IV SCH ×2 (01:25→07:56)
[2017-08-20] MEDS: HYDROmorphone 2 MG/1 ML VIAL IV PRN ×2 (01:55→19:12)
[2017-08-20 03:40] LABS: ABG Base Excess -1.2 MMOL/L (-2.5-2.5); ABG HCO3 23.3 MMOL/L (20-26); ABG Oxygen Saturation 95.1 % (95-100); ABG PCO2 56.2 MM HG (35-48); ABG PH 7.275 (7.35-7.45); ABG PO2 82.7 MM HG (80-95); ABG TCO2 24.7 MMOL/L (23-27)
[2017-08-20 04:25] LABS: Basophils % 0.1 % (0.0-0.8); Hematocrit 23.9 VOL% (42.0-52.0); Hemoglobin 7.9 GM/DL (14.0-18.0); Immature Granulocytes % 0.5 %; Lymphocytes # 1.6 10*3/uL (1.4-4.0); Lymphocytes % 7.8 % (21.2-54.2); Mean Corpuscular HGB Conc 33.1 GM/DL (32-36); Mean Corpuscular Hemoglobin 31 PG (27-34); Mean Corpuscular Volume 93.4 FL (87-102); Monocytes # 1.6 10*3/uL (0.11-0.8); Monocytes % 7.9 % (1.7-12.7); Neutrophils # 17.3 10*3/uL (1.4-7.4); Neutrophils % 83.7 % (38.7-73.9); Platelet Count 149 T/CUMM (130-400); Red Blood Count 2.56 MC/CUMM (3.8-5.5); Red Cell Distribution Width 15.9 % (9.3-17.3); White Blood Count 20.6 T/CUMM (4-12)
[2017-08-20 04:26] LABS: Calcium 7.5 MG/DL (8.5-10.1); Osmolality,Calculated 285.3 MOS/KG (273-304); Potassium 4.3 MMOL/L (3.5-5.1)
[2017-08-20] MEDS ORDERED: FUROSEMIDE 40 MG/4 ML VIAL IV ONE (05:00)
[2017-08-20] MEDS: LACTATED RINGERS 1,000 ML IV SCH (07:20)
[2017-08-20] MEDS: ASPIRIN EC 325 MG TABLET PO SCH (09:25)
[2017-08-20] MEDS: FUROSEMIDE 40 MG TABLET PO SCH (09:25)
[2017-08-20] MEDS: AMIODARONE 200 MG TABLET PO SCH (09:25)
[2017-08-20] MEDS: CEFUROXIME INJ 1,500 MG in SYRINGE 1 EACH IV SCH ×2 (09:26→19:17)
[2017-08-20] MEDS: CHLORHEXIDINE 0.12% ORAL RINSE 60 ML BOTTLE SWISH/SPIT SCH ×2 (09:27→21:50)
[2017-08-20] MEDS: METOPROLOL SUCCINATE XL 25 MG TABLET PO SCH ×2 (09:28→21:48)
[2017-08-20] MEDS: MORPHINE 4 MG/1 ML VIAL IV PRN (19:31)
[2017-08-20] MEDS ORDERED: INSULIN REGULAR 100 UNIT/ML SUBCUT SCH ×2 (20:07→22:00)
[2017-08-20] MEDS: INSULIN REGULAR 100 UNIT/ML SUBCUT SCH (20:21)
[2017-08-20] MEDS: ATORVASTATIN 40 MG TABLET PO SCH (21:48)
[2017-08-20] MEDS: traZODone 50 MG TABLET PO SCH (21:48)
[2017-08-20] MEDS: SERTRALINE 100 MG TABLET PO SCH (21:48)
[2017-08-21] MEDS: HYDROmorphone 2 MG/1 ML VIAL IV PRN (00:45)
[2017-08-21] MEDS: INSULIN REGULAR 100 UNIT/ML SUBCUT SCH ×6 (03:33→21:21)
[2017-08-21] MEDS: SODIUM CHLORIDE 0.45% 1,000 ML IV SCH ×2 (03:34→08:58)
[2017-08-21 05:11] LABS: ABG Base Excess 1.6 MMOL/L (-2.5-2.5); ABG HCO3 25.7 MMOL/L (20-26); ABG Oxygen Saturation 86.6 % (95-100); ABG PCO2 44.7 MM HG (35-48); ABG PH 7.387 (7.35-7.45); ABG PO2 53.6 MM HG (80-95)
[2017-08-21 05:14] LABS: Basophils % 0.1 % (0.0-0.8); Hematocrit 24.5 VOL% (42.0-52.0); Immature Granulocytes % 0.5 %; Immature Granulocytes Absolute 0.09 #; Lymphocytes # 1.1 10*3/uL (1.4-4.0); Mean Corpuscular HGB Conc 32.7 GM/DL (32-36); Mean Corpuscular Hemoglobin 31 PG (27-34); Mean Corpuscular Volume 93.5 FL (87-102); Mean Platelet Volume 13.4 FL (9.6-12.0); Monocytes # 1.4 10*3/uL (0.11-0.8); Monocytes % 7.8 % (1.7-12.7); Neutrophils # 15.8 10*3/uL (1.4-7.4); Neutrophils % 85.6 % (38.7-73.9); Platelet Count 110 T/CUMM (130-400); Red Blood Count 2.62 MC/CUMM (3.8-5.5); Red Cell Distribution Width 17.1 % (9.3-17.3); White Blood Count 18.5 T/CUMM (4-12)
[2017-08-21 06:05] LABS: Osmolality,Calculated 281.7 MOS/KG (273-304); Potassium 4.7 MMOL/L (3.5-5.1)
[2017-08-21] MEDS: MAGNESIUM SULF RIDER 2 GM in PREMIX 1 EACH IV PRN (07:13)
[2017-08-21] MEDS: FUROSEMIDE 40 MG TABLET PO SCH (08:57)
[2017-08-21] MEDS: AMIODARONE 200 MG TABLET PO SCH (08:57)
[2017-08-21] MEDS: ASPIRIN EC 325 MG TABLET PO SCH (08:57)
[2017-08-21] MEDS: CHLORHEXIDINE 0.12% ORAL RINSE 60 ML BOTTLE SWISH/SPIT SCH ×2 (08:58→21:38)
[2017-08-21] MEDS: METOPROLOL SUCCINATE XL 25 MG TABLET PO SCH ×3 (08:59→21:21)
[2017-08-21] MEDS ORDERED: FUROSEMIDE 40 MG/4 ML VIAL IV ONE ×2 (09:54→14:00)
[2017-08-21] MEDS ORDERED: ALBUTEROL/IPRATROPIUM 3 ML NEB RESP TX PRN (09:56)
[2017-08-21] MEDS: COLCHICINE 0.6 MG TABLET PO SCH (10:06)
[2017-08-21] MEDS: LEVALBUTEROL 0.63 MG/3 ML NEB RESP TX SCH ×4 (10:19→23:12)
[2017-08-21] MEDS ORDERED: ALBUTEROL/IPRATROPIUM 3 ML NEB RESP TX SCH (11:00)
[2017-08-21] MEDS: cefTRIAXone 1,000 MG in SYRINGE 1 EACH IV SCH (12:29)
[2017-08-21] MEDS: methylPREDNISolone SOD SUC 40 MG/1 ML VIAL IV SCH ×2 (12:30→21:22)
[2017-08-21] MEDS ORDERED: traMADol 50 MG TABLET PO PRN (14:52)
[2017-08-21] MEDS: INSULIN REGULAR DRIP 100 ML IV SCH (16:13)
[2017-08-21] MEDS: MONTELUKAST 10 MG TABLET PO SCH (21:21)
[2017-08-21] MEDS: ATORVASTATIN 40 MG TABLET PO SCH (21:21)
[2017-08-21] MEDS: MORPHINE 4 MG/1 ML VIAL IV PRN (21:21)
[2017-08-21] MEDS: traZODone 50 MG TABLET PO SCH (21:22)
[2017-08-21] MEDS: SERTRALINE 100 MG TABLET PO SCH (21:22)
[2017-08-22] MEDS: INSULIN REGULAR 100 UNIT/ML SUBCUT SCH ×6 (00:06→21:20)
[2017-08-22] MEDS: LEVALBUTEROL 0.63 MG/3 ML NEB RESP TX SCH ×5 (02:11→19:13)
[2017-08-22 04:32] LABS: ABG Base Excess 6.6 MMOL/L (-2.5-2.5); ABG HCO3 30.4 MMOL/L (20-26); ABG Oxygen Saturation 91.9 % (95-100); ABG PH 7.498 (7.35-7.45); ABG PO2 64.2 MM HG (80-95); ABG TCO2 31.6 MMOL/L (23-27); Allen Test Positive; Pt O2 Delivery Device Venturi Mask
[2017-08-22] MEDS: methylPREDNISolone SOD SUC 40 MG/1 ML VIAL IV SCH ×3 (04:50→21:20)
[2017-08-22 05:15] LABS: Basophils % 0.1 % (0.0-0.8); Hematocrit 23.7 VOL% (42.0-52.0); Hemoglobin 7.9 GM/DL (14.0-18.0); Immature Granulocytes % 1.4 %; Immature Granulocytes Absolute 0.23 #; Lymphocytes # 0.9 10*3/uL (1.4-4.0); Lymphocytes % 5.4 % (21.2-54.2); Mean Corpuscular HGB Conc 33.3 GM/DL (32-36); Mean Corpuscular Hemoglobin 30 PG (27-34); Mean Corpuscular Volume 90.5 FL (87-102); Monocytes # 0.9 10*3/uL (0.11-0.8); Monocytes % 5.2 % (1.7-12.7); NRBC # 0.02 10*3/uL; Neutrophils % 87.9 % (38.7-73.9); Platelet Count 105 T/CUMM (130-400); Red Blood Count 2.62 MC/CUMM (3.8-5.5); Red Cell Distribution Width 16.6 % (9.3-17.3)
[2017-08-22 05:49] LABS: Calcium 7.8 MG/DL (8.5-10.1); Osmolality,Calculated 285.5 MOS/KG (273-304); Potassium 3.6 MMOL/L (3.5-5.1)
[2017-08-22] MEDS: ASPIRIN EC 325 MG TABLET PO SCH (08:33)
[2017-08-22] MEDS: AMIODARONE 200 MG TABLET PO SCH (08:33)
[2017-08-22] MEDS: METOPROLOL SUCCINATE XL 25 MG TABLET PO SCH (08:33)
[2017-08-22] MEDS: COLCHICINE 0.6 MG TABLET PO SCH (08:33)
[2017-08-22] MEDS: FUROSEMIDE 40 MG/4 ML VIAL IV SCH ×2 (08:34→21:20)
[2017-08-22] MEDS ORDERED: SODIUM CHLORIDE 0.9% 1,000 ML IV PRN (10:26)
[2017-08-22] MEDS: POTASSIUM CHLORIDE RIDER 20 MEQ in PREMIX 1 EACH IV PRN ×2 (11:47→13:55)
[2017-08-22] MEDS: CAPTOPRIL 6.25 MG TABLET PO SCH ×2 (11:47→17:00)
[2017-08-22] MEDS: CHLORHEXIDINE 0.12% ORAL RINSE 60 ML BOTTLE SWISH/SPIT SCH ×2 (11:47→21:23)
[2017-08-22] MEDS: CARVEDILOL 3.125 MG TABLET PO SCH ×2 (12:21→17:00)
[2017-08-22] MEDS: cefTRIAXone 1,000 MG in SYRINGE 1 EACH IV SCH (12:26)
[2017-08-22] MEDS: traZODone 50 MG TABLET PO SCH (21:22)
[2017-08-22] MEDS: ATORVASTATIN 40 MG TABLET PO SCH (21:22)
[2017-08-22] MEDS: SERTRALINE 100 MG TABLET PO SCH (21:22)
[2017-08-22] MEDS: MONTELUKAST 10 MG TABLET PO SCH (21:22)
[2017-08-23] MEDS: LEVALBUTEROL 0.63 MG/3 ML NEB RESP TX SCH ×6 (00:05→19:49)
[2017-08-23] MEDS: INSULIN REGULAR 100 UNIT/ML SUBCUT SCH ×6 (00:18→20:56)
[2017-08-23] MEDS: CARVEDILOL 3.125 MG TABLET PO SCH ×3 (01:00→12:06)
[2017-08-23] MEDS: CAPTOPRIL 6.25 MG TABLET PO SCH ×3 (01:00→16:36)
[2017-08-23] MEDS: methylPREDNISolone SOD SUC 40 MG/1 ML VIAL IV SCH ×3 (03:42→20:56)
[2017-08-23 03:53] LABS: Basophils % 0.1 % (0.0-0.8); Hematocrit 26.4 VOL% (42.0-52.0); Hemoglobin 8.7 GM/DL (14.0-18.0); Immature Granulocytes % 1.3 %; Immature Granulocytes Absolute 0.22 #; Lymphocytes # 1.2 10*3/uL (1.4-4.0); Lymphocytes % 6.8 % (21.2-54.2); Mean Corpuscular Hemoglobin 31 PG (27-34); Mean Corpuscular Volume 92.6 FL (87-102); Mean Platelet Volume 12.8 FL (9.6-12.0); Monocytes # 1.1 10*3/uL (0.11-0.8); Monocytes % 6.5 % (1.7-12.7); NRBC # 0.02 10*3/uL; Neutrophils # 14.8 10*3/uL (1.4-7.4); Neutrophils % 85.3 % (38.7-73.9); Platelet Count 127 T/CUMM (130-400); Red Blood Count 2.85 MC/CUMM (3.8-5.5); Red Cell Distribution Width 16.9 % (9.3-17.3); White Blood Count 17.3 T/CUMM (4-12)
[2017-08-23 04:09] LABS: Calcium 7.6 MG/DL (8.5-10.1); Osmolality,Calculated 291.1 MOS/KG (273-304); Potassium 3.6 MMOL/L (3.5-5.1)
[2017-08-23 05:04] LABS: ABG Base Excess 4.4 MMOL/L (-2.5-2.5); ABG HCO3 28.4 MMOL/L (20-26); ABG Oxygen Saturation 91.7 % (95-100); ABG PCO2 40.3 MM HG (35-48); ABG PH 7.466 (7.35-7.45); ABG PO2 65.5 MM HG (80-95); ABG TCO2 29.6 MMOL/L (23-27); Allen Test Positive
[2017-08-23] MEDS: POTASSIUM CHLORIDE RIDER 20 MEQ in PREMIX 1 EACH IV PRN ×2 (05:53→07:24)
[2017-08-23] MEDS: AMIODARONE 200 MG TABLET PO SCH (08:23)
[2017-08-23] MEDS: FUROSEMIDE 40 MG/4 ML VIAL IV SCH ×2 (08:23→20:56)
[2017-08-23] MEDS: ASPIRIN EC 325 MG TABLET PO SCH (08:23)
[2017-08-23] MEDS: COLCHICINE 0.6 MG TABLET PO SCH (08:23)
[2017-08-23] MEDS: CHLORHEXIDINE 0.12% ORAL RINSE 60 ML BOTTLE SWISH/SPIT SCH ×2 (11:07→21:04)
[2017-08-23] MEDS: cefTRIAXone 1,000 MG in SYRINGE 1 EACH IV SCH (13:03)
[2017-08-23] MEDS: MONTELUKAST 10 MG TABLET PO SCH (20:55)
[2017-08-23] MEDS: SERTRALINE 100 MG TABLET PO SCH (20:55)
[2017-08-23] MEDS: traZODone 50 MG TABLET PO SCH (20:55)
[2017-08-23] MEDS: ATORVASTATIN 40 MG TABLET PO SCH (20:55)
[2017-08-23] MEDS: CARVEDILOL 6.25 MG TABLET PO SCH (20:55)
[2017-08-24] MEDS: LEVALBUTEROL 0.63 MG/3 ML NEB RESP TX SCH ×6 (00:08→19:20)
[2017-08-24] MEDS: CAPTOPRIL 6.25 MG TABLET PO SCH ×3 (01:27→17:27)
[2017-08-24 04:55] LABS: ABG Base Excess 1.7 MMOL/L (-2.5-2.5); ABG HCO3 25.9 MMOL/L (20-26); ABG Oxygen Saturation 94.1 % (95-100); ABG PCO2 40.4 MM HG (35-48); ABG PO2 72.8 MM HG (80-95); Allen Test Positive
[2017-08-24 05:04] LABS: Basophils % 0.1 % (0.0-0.8); Hematocrit 29.4 VOL% (42.0-52.0); Hemoglobin 9.9 GM/DL (14.0-18.0); Immature Granulocytes % 1.3 %; Immature Granulocytes Absolute 0.22 #; Lymphocytes # 1.3 10*3/uL (1.4-4.0); Mean Corpuscular HGB Conc 33.7 GM/DL (32-36); Mean Corpuscular Hemoglobin 30 PG (27-34); Mean Corpuscular Volume 89.6 FL (87-102); Mean Platelet Volume 12.7 FL (9.6-12.0); Monocytes # 0.9 10*3/uL (0.11-0.8); Monocytes % 5.7 % (1.7-12.7); Neutrophils # 14.1 10*3/uL (1.4-7.4); Neutrophils % 84.9 % (38.7-73.9); Platelet Count 163 T/CUMM (130-400); Red Blood Count 3.28 MC/CUMM (3.8-5.5); Red Cell Distribution Width 16.6 % (9.3-17.3); White Blood Count 16.6 T/CUMM (4-12)
[2017-08-24 05:27] LABS: Calcium 8.3 MG/DL (8.5-10.1); Osmolality,Calculated 291.4 MOS/KG (273-304); Potassium 3.9 MMOL/L (3.5-5.1)
[2017-08-24] MEDS: AMIODARONE 200 MG TABLET PO SCH (09:13)
[2017-08-24] MEDS: ASPIRIN EC 325 MG TABLET PO SCH (09:13)
[2017-08-24] MEDS: CARVEDILOL 6.25 MG TABLET PO SCH ×2 (09:14→20:59)
[2017-08-24] MEDS: COLCHICINE 0.6 MG TABLET PO SCH (09:14)
[2017-08-24] MEDS: FUROSEMIDE 40 MG/4 ML VIAL IV SCH ×2 (09:14→20:54)
[2017-08-24] MEDS: CHLORHEXIDINE 0.12% ORAL RINSE 60 ML BOTTLE SWISH/SPIT SCH ×2 (09:16→20:59)
[2017-08-24] MEDS: INSULIN REGULAR 100 UNIT/ML SUBCUT SCH ×3 (11:36→20:50)
[2017-08-24] MEDS: cefTRIAXone 1,000 MG in SYRINGE 1 EACH IV SCH (13:57)
[2017-08-24] MEDS: traZODone 50 MG TABLET PO SCH (20:59)
[2017-08-24] MEDS: MONTELUKAST 10 MG TABLET PO SCH (20:59)
[2017-08-24] MEDS: ATORVASTATIN 40 MG TABLET PO SCH (20:59)
[2017-08-24] MEDS: SERTRALINE 100 MG TABLET PO SCH (20:59)
[2017-08-25] MEDS: LEVALBUTEROL 0.63 MG/3 ML NEB RESP TX SCH ×5 (00:07→14:00)
[2017-08-25] MEDS: CAPTOPRIL 6.25 MG TABLET PO SCH ×2 (01:39→09:45)
[2017-08-25 03:56] LABS: ABG Base Excess 3.5 MMOL/L (-2.5-2.5); ABG HCO3 27.1 MMOL/L (20-26); ABG Oxygen Saturation 90.4 % (95-100); ABG PCO2 37.7 MM HG (35-48); ABG PH 7.475 (7.35-7.45); ABG PO2 61.8 MM HG (80-95); ABG TCO2 28.3 MMOL/L (23-27)
[2017-08-25 05:37] LABS: Calcium 8.3 MG/DL (8.5-10.1); Osmolality,Calculated 288.5 MOS/KG (273-304); Potassium 3.7 MMOL/L (3.5-5.1)
[2017-08-25] MEDS ORDERED: FUROSEMIDE 80 MG TABLET PO SCH (09:00)
[2017-08-25] MEDS: ASPIRIN EC 325 MG TABLET PO SCH (09:45)
[2017-08-25] MEDS: AMIODARONE 200 MG TABLET PO SCH (09:46)
[2017-08-25] MEDS: CARVEDILOL 6.25 MG TABLET PO SCH (09:46)
[2017-08-25] MEDS: CHLORHEXIDINE 0.12% ORAL RINSE 60 ML BOTTLE SWISH/SPIT SCH (09:47)
[2017-08-25 12:42] VITALS: BP 94/49
[2017-08-26] MEDS ORDERED: ERGOCALCIFEROL 50,000 UNIT CAPSULE PO SCH (09:00)
== END 2017-08-25 14:46 | disposition swing bed (61) | DRG 235 ==
LOC: N.SDSINP 05:30 → N.CVR 07:26 → N.ICU 08-20 09:21 → N.TELES 08-23 10:13
PROVIDERS: ADMIT Thoracic Surgery (Cardiothoracic Vascular Surgery); ATTEND Thoracic Surgery (Cardiothoracic Vascular Surgery)

== ENCOUNTER 2017-09-10 11:06 | Inpatient (IN) ==
[2017-09-10 12:01] LABS: Basophils # 0.1 10*3/uL (0.0-0.2); Eosinophils # 1.6 10*3/uL (0.0-0.87); Eosinophils % 17.4 % (0.00-10.9); Hematocrit 32.6 VOL% (42.0-52.0); Hemoglobin 10.7 GM/DL (14.0-18.0); Immature Granulocytes % 0.4 %; Immature Granulocytes Absolute 0.04 #; Lymphocytes # 1.7 10*3/uL (1.4-4.0); Lymphocytes % 18.3 % (21.2-54.2); Mean Corpuscular HGB Conc 32.8 GM/DL (32-36); Mean Corpuscular Hemoglobin 31 PG (27-34); Mean Corpuscular Volume 93.4 FL (87-102); Mean Platelet Volume 11.8 FL (9.6-12.0); Monocytes # 0.6 10*3/uL (0.11-0.8); Monocytes % 6.2 % (1.7-12.7); Neutrophils # 5.2 10*3/uL (1.4-7.4); Neutrophils % 56.7 % (38.7-73.9); Platelet Count 277 T/CUMM (130-400); Red Blood Count 3.49 MC/CUMM (3.8-5.5); Red Cell Distribution Width 16.6 % (9.3-17.3); White Blood Count 9.1 T/CUMM (4-12)
[2017-09-10 12:21] LABS: Eosinophils 14 % (0-10); Hypochromasia 1+; Lymphocytes 12 % (20-55); Platelet Estimate Adequate; Segmented Neutrophils 68 % (50-85); Total Cells Counted 100
[2017-09-10 12:22] LABS: Giant Platelets Few
[2017-09-10 12:42] LABS: Albumin 2.5 G/DL (3.4-5.0); Bilirubin,Total 0.9 MG/DL (0.2-1.0); Calcium 8.7 MG/DL (8.5-10.1); Osmolality,Calculated 277.8 MOS/KG (273-304); Potassium 4.2 MMOL/L (3.5-5.1); Total Protein 7.2 G/DL (6.4-8.3); Troponin I Only 0.029 NG/ML (0.00-0.045)
[2017-09-10 13:57] LABS: Apearance,Urine CLEAR (Clear); Bilirubin,Urine Negative (Negative); Blood, Urine Negative (Negative); Glucose,Urine (UA) Negative (Negative); Hyaline Casts,Urine 17 /LPF (0-3); Ketones,Urine Negative (Negative); Mucus,Urine Occasional /LPF (Occasional); Nitrite,Urine Negative (Negative); Protein,Urine Negative; Urine Color Yellow (Yellow); Urine Urobilinogen < 2.0 EU/DL (0.2-1.0); WBC,Urine <1 /HPF (0-6)
[2017-09-10] MEDS ORDERED: ONDANSETRON 4 MG/2 ML VIAL IV PRN (17:24)
[2017-09-10] MEDS ORDERED: ACETAMINOPHEN 325 MG TABLET PO PRN (17:24)
[2017-09-10] MEDS ORDERED: diphenhydrAMINE CAP 25 MG CAPSULE PO PRN (17:24)
[2017-09-10] MEDS ORDERED: GLUCAGON 1 MG VIAL IM PRN (17:47)
[2017-09-10] MEDS ORDERED: DEXTROSE 50% 25 GM/50 ML VIAL IV PRN (17:47)
[2017-09-10] MEDS: SODIUM CHLORIDE 0.9% 1,000 ML IV SCH (18:35)
[2017-09-10 19:16] LABS: Calcium 8.8 MG/DL (8.5-10.1)
[2017-09-10] MEDS ORDERED: SERTRALINE 100 MG TABLET PO SCH (21:00)
[2017-09-10] MEDS ORDERED: ATORVASTATIN 40 MG TABLET PO SCH (21:00)
[2017-09-10] MEDS: CARVEDILOL 6.25 MG TABLET PO SCH (21:17)
[2017-09-10] MEDS: APIXABAN 5 MG TABLET PO SCH (21:18)
[2017-09-10] MEDS: INSULIN LISPRO 100 UNIT/ML SUBCUT SCH (21:19)
[2017-09-10] MEDS: POTASSIUM CHLORIDE 20 MEQ TABLET PO SCH (21:19)
[2017-09-11 06:20] LABS: Basophils # 0.1 10*3/uL (0.0-0.2); Basophils % 0.5 % (0.0-0.8); Eosinophils # 2.1 10*3/uL (0.0-0.87); Eosinophils % 21.6 % (0.00-10.9); Hematocrit 33.8 VOL% (42.0-52.0); Hemoglobin 10.9 GM/DL (14.0-18.0); Immature Granulocytes % 0.5 %; Immature Granulocytes Absolute 0.05 #; Lymphocytes # 1.8 10*3/uL (1.4-4.0); Lymphocytes % 18.6 % (21.2-54.2); Mean Corpuscular HGB Conc 32.2 GM/DL (32-36); Mean Corpuscular Hemoglobin 30 PG (27-34); Mean Corpuscular Volume 92.9 FL (87-102); Monocytes # 0.7 10*3/uL (0.11-0.8); Monocytes % 6.8 % (1.7-12.7); Platelet Count 266 T/CUMM (130-400); Red Blood Count 3.64 MC/CUMM (3.8-5.5); Red Cell Distribution Width 16.7 % (9.3-17.3); White Blood Count 9.7 T/CUMM (4-12)
[2017-09-11 06:38] LABS: Albumin 2.4 G/DL (3.4-5.0); Bilirubin,Total 1.1 MG/DL (0.2-1.0); Calcium 8.8 MG/DL (8.5-10.1); Osmolality,Calculated 281.4 MOS/KG (273-304); Potassium 4.7 MMOL/L (3.5-5.1)
[2017-09-11 06:47] LABS: Eosinophils 21 % (0-10); Lymphocytes 16 % (20-55); Segmented Neutrophils 57 % (50-85); Total Cells Counted 100
[2017-09-11 06:49] LABS: Hypochromasia 1+; Platelet Estimate Adequate
[2017-09-11] MEDS: INSULIN LISPRO 100 UNIT/ML SUBCUT SCH (07:46)
[2017-09-11 08:01] VITALS: BP 78/46
[2017-09-11] MEDS ORDERED: DEXTROSE 50% 25 GM/50 ML VIAL IV PRN (08:13)
[2017-09-11] MEDS ORDERED: GLUCAGON 1 MG VIAL IM PRN (08:13)
[2017-09-11] MEDS: APIXABAN 5 MG TABLET PO SCH (08:17)
[2017-09-11] MEDS: CARVEDILOL 6.25 MG TABLET PO SCH (08:17)
[2017-09-11] MEDS: POTASSIUM CHLORIDE 20 MEQ TABLET PO SCH (08:17)
[2017-09-11] MEDS: SODIUM CHLORIDE 0.9% 1,000 ML IV SCH (08:18)
[2017-09-11] MEDS ORDERED: PANTOPRAZOLE 40 MG TABLET PO SCH (09:00)
[2017-09-11] MEDS ORDERED: buPROPion SR 150 MG TABLET PO SCH (09:00)
[2017-09-11] MEDS ORDERED: FUROSEMIDE 20 MG TABLET PO SCH (09:00)
[2017-09-11] MEDS ORDERED: ASPIRIN EC 325 MG TABLET PO SCH (09:00)
[2017-09-11] MEDS ORDERED: AMIODARONE 200 MG TABLET PO SCH (09:00)
[2017-09-13] MEDS ORDERED: ERGOCALCIFEROL 50,000 UNIT CAPSULE PO SCH (09:00)
== END 2017-09-11 12:01 | disposition home or self-care (01) | DRG 683 ==
LOC: N.ED 11:06 → N.EDINP 16:53 → N.TELEN 18:22
PROVIDERS: ADMIT Internal Medicine Geriatric Medicine; ATTEND Internal Medicine Geriatric Medicine

== ENCOUNTER 2018-01-07 12:14 | Observation (INO) ==
[2018-01-07] MEDS ORDERED: ceFAZolin 1,000 MG in SYRINGE 1 EACH IV ONE (16:53)
[2018-01-07] MEDS ORDERED: ceFAZolin 1,000 MG VIAL IRRIG ONE (16:53)
[2018-01-07] MEDS: busPIRone 10 MG TABLET PO SCH (21:39)
[2018-01-07] MEDS: ATORVASTATIN 40 MG TABLET PO SCH (21:39)
[2018-01-07] MEDS: SERTRALINE 50 MG TABLET PO SCH (21:39)
[2018-01-07] MEDS: POTASSIUM CHLORIDE 20 MEQ TABLET PO SCH (21:40)
[2018-01-07] MEDS: SACUBITRIL/VALSARTAN 49-51 MG TABLET PO SCH (21:40)
[2018-01-08 04:23] LABS: Basophils # 0.1 10*3/uL (0.0-0.2); Basophils % 1.3 % (0.0-0.8); Eosinophils % 9.9 % (0.00-10.9); Hemoglobin 13.6 GM/DL (14.0-18.0); Immature Granulocytes % 0.3 %; Immature Granulocytes Absolute 0.03 #; Lymphocytes # 2.3 10*3/uL (1.4-4.0); Lymphocytes % 22.8 % (21.2-54.2); Mean Corpuscular HGB Conc 32.4 GM/DL (32-36); Mean Corpuscular Hemoglobin 30 PG (27-34); Mean Corpuscular Volume 92.7 FL (87-102); Mean Platelet Volume 12.9 FL (9.6-12.0); Monocytes # 0.8 10*3/uL (0.11-0.8); Monocytes % 7.5 % (1.7-12.7); Neutrophils % 58.2 % (38.7-73.9); Platelet Count 183 T/CUMM (130-400); Red Blood Count 4.53 MC/CUMM (3.8-5.5); White Blood Count 10.3 T/CUMM (4-12)
[2018-01-08 04:50] LABS: Calcium 8.8 MG/DL (8.5-10.1); Osmolality,Calculated 288.1 MOS/KG (273-304); Potassium 4.3 MMOL/L (3.5-5.1)
[2018-01-08] MEDS ORDERED: ceFAZolin 1,000 MG VIAL IRRIG ONE (06:30)
[2018-01-08] MEDS ORDERED: ceFAZolin 1,000 MG in SYRINGE 1 EACH IV ONE (07:00)
[2018-01-08] MEDS ORDERED: LIDOCAINE 1% 20 ML VIAL ONE (07:18)
[2018-01-08] MEDS ORDERED: HEPARIN/NACL 0.9% 2 UNITS/ML 500 ML IV ONE (07:18)
[2018-01-08] MEDS ORDERED: fentaNYL 100 MCG/2 ML VIAL ONE ×2 (07:19→07:52)
[2018-01-08] MEDS ORDERED: MIDAZOLAM 2 MG/2 ML VIAL ONE ×3 (07:19→08:22)
[2018-01-08] MEDS ORDERED: ceFAZolin 1,000 MG VIAL ONE (07:28)
[2018-01-08] MEDS ORDERED: TISSUE ADHESIVE 1 EACH APPLICATOR TOP ONE (08:26)
[2018-01-08] MEDS ORDERED: oxyCODONE/ACETAMINOPHEN 5-325 MG TABLET PO PRN (08:41)
[2018-01-08] MEDS: FUROSEMIDE 20 MG TABLET PO SCH (09:56)
[2018-01-08] MEDS: POTASSIUM CHLORIDE 20 MEQ TABLET PO SCH ×2 (09:56→20:38)
[2018-01-08] MEDS: SACUBITRIL/VALSARTAN 49-51 MG TABLET PO SCH ×2 (09:56→20:38)
[2018-01-08] MEDS: CLOPIDOGREL 75 MG TABLET PO SCH (09:56)
[2018-01-08] MEDS: LEVOTHYROXINE 50 MCG TABLET PO SCH (09:57)
[2018-01-08] MEDS: METOPROLOL SUCCINATE XL 50 MG TABLET PO SCH (10:04)
[2018-01-08] MEDS: ASPIRIN EC 81 MG TABLET PO SCH (10:04)
[2018-01-08] MEDS: buPROPion SR 150 MG TABLET PO SCH (10:04)
[2018-01-08] MEDS: busPIRone 5 MG TABLET PO SCH (10:05)
[2018-01-08] MEDS: ceFAZolin 1,000 MG in SYRINGE 1 EACH IV SCH ×2 (15:03→22:53)
[2018-01-08] MEDS: busPIRone 10 MG TABLET PO SCH (20:40)
[2018-01-08] MEDS: SERTRALINE 50 MG TABLET PO SCH (20:40)
[2018-01-08] MEDS: ATORVASTATIN 40 MG TABLET PO SCH (20:46)
[2018-01-09 05:15] LABS: Basophils # 0.1 10*3/uL (0.0-0.2); Basophils % 0.7 % (0.0-0.8); Eosinophils # 0.9 10*3/uL (0.0-0.87); Eosinophils % 7.7 % (0.00-10.9); Hematocrit 43.5 VOL% (42.0-52.0); Hemoglobin 14.2 GM/DL (14.0-18.0); Immature Granulocytes % 0.4 %; Immature Granulocytes Absolute 0.04 #; Lymphocytes # 1.8 10*3/uL (1.4-4.0); Lymphocytes % 15.9 % (21.2-54.2); Mean Corpuscular HGB Conc 32.6 GM/DL (32-36); Mean Corpuscular Hemoglobin 30 PG (27-34); Mean Platelet Volume 12.9 FL (9.6-12.0); Monocytes # 0.8 10*3/uL (0.11-0.8); Neutrophils # 7.8 10*3/uL (1.4-7.4); Neutrophils % 68.3 % (38.7-73.9); Platelet Count 169 T/CUMM (130-400); Red Blood Count 4.73 MC/CUMM (3.8-5.5); Red Cell Distribution Width 14.9 % (9.3-17.3); White Blood Count 11.4 T/CUMM (4-12)
[2018-01-09 05:34] LABS: Calcium 8.9 MG/DL (8.5-10.1); Osmolality,Calculated 277.8 MOS/KG (273-304); Potassium 4.5 MMOL/L (3.5-5.1)
[2018-01-09] MEDS: LEVOTHYROXINE 50 MCG TABLET PO SCH (05:35)
[2018-01-09 07:30] VITALS: BP 128/65
[2018-01-09] MEDS: busPIRone 5 MG TABLET PO SCH (08:26)
[2018-01-09] MEDS: SACUBITRIL/VALSARTAN 49-51 MG TABLET PO SCH (08:26)
[2018-01-09] MEDS: FUROSEMIDE 20 MG TABLET PO SCH (08:27)
[2018-01-09] MEDS: CLOPIDOGREL 75 MG TABLET PO SCH (08:27)
[2018-01-09] MEDS: ASPIRIN EC 81 MG TABLET PO SCH (08:27)
[2018-01-09] MEDS: POTASSIUM CHLORIDE 20 MEQ TABLET PO SCH (08:27)
[2018-01-09] MEDS: buPROPion SR 150 MG TABLET PO SCH (08:27)
[2018-01-09] MEDS: METOPROLOL SUCCINATE XL 50 MG TABLET PO SCH (08:46)
== END 2018-01-09 11:47 | disposition home or self-care (01) ==
LOC: INTOOBSV 16:03 → N.2W 16:03 → N.TELEN 17:39
PROVIDERS: ADMIT Internal Medicine Clinical Cardiac Electrophysiology; ATTEND Internal Medicine Clinical Cardiac Electrophysiology
PROC: CLDCICD (2018-01-08 07:45)